=== PATIENT | female | born 1945 | race Caucasian/White ===

== ENCOUNTER 2016-10-31 08:59 | Inpatient (IN) | payer OTHER, MEDICARE ==
[2016-10-25 18:54] LABS: BILIRUBIN,URINE NEGATIVE (NEGATIVE); BLOOD, URINE NEGATIVE (NEGATIVE); CLARITY/URINE SL HAZY (CLEAR); COLOR,URINE YELLOW (YELLOW); GLUCOSE,URINE NEGATIVE (NEGATIVE); KETONES,URINE NEGATIVE (NEGATIVE); LEUKOCYTE ESTERASE ,URINE TRACE (NEGATIVE); NITRITE, URINE NEGATIVE (NEGATIVE); PH,URINE 5.5 (5.0-8.0); PROTEIN URINE NEGATIVE (NEGATIVE); UROBILINOGEN,URINE 0.2 (0.2-1.0)
[2016-10-25 18:56] LABS: BASOPHILS % (AUTO) 0.4 % (0.0-2.0); EOSINOPHILS # (AUTO) 0.1 K/uL (0.0-0.4); EOSINOPHILS % (AUTO) 1.1 % (0.0-4.0); HEMOGLOBIN 12.1 g/dL (12.0-16.0); LYMPHOCYTES # (AUTO) 2.7 K/uL (1.0-5.5); LYMPHOCYTES % (AUTO) 36.9 % (20.5-51.5); MEAN CORPUSCULAR HEMOGLOBIN 32 pg (27-31); MEAN CORPUSCULAR HGB CONC 34 % (32-36); MEAN CORPUSCULAR VOLUME 94 fL (79.0-98.0); MONOCYTES # (AUTO) 0.6 K/uL (0.0-1.0); MONOCYTES % (AUTO) 8.5 % (1.7-9.3); NEUTROPHILS % (AUTO) 53.1 % (40.0-70.0); PLATELET COUNT (AUTO) 203 K/uL (130-430); RED BLOOD CELL COUNT(AUTO) 3.83 MIL/uL (4.2-6.2); RED CELL DISTRIBUTION WIDTH 14.8 % (9.0-15.0); WHITE BLOOD COUNT (AUTO) 7.4 K/uL (4.8-10.8)
[2016-10-25 19:03] LABS: ANION GAP 8 (5-15); CALCIUM 9.8 mg/dL (8.4-11.0); CHLORIDE 106 mmol/L (98-107); CREATININE 1.11 mg/dL (0.55-1.30); GLUCOSE 92 mg/dL (70-99); POTASSIUM 4.6 mmol/L (3.5-5.1); SODIUM SERUM 141 mmol/L (136-145); UREA NITROGEN, BLOOD 36 mg/dL (8-21)
[2016-10-25 19:05] LABS: BACTERIA,URINE MODERATE /HPF (None Seen); RBC,URINE 0-3 /HPF (0-3)
[2016-10-25 19:06] LABS: MUCUS,URINE 2+ /LPF (None Seen)
[~2016-10-31] VITALS: Ht 167.6 cm; Wt 83.9 kg
[~2016-10-31 08:59] MED LIST: TRANEXAMIC ACID 1,000 MG/10 ML VIAL IV ONE
[2016-10-31] MEDS ORDERED: VANCOMYCIN HCL 1,000 MG in NS 250 ML IV ONE (09:30)
[2016-10-31] MEDS ORDERED: CEFAZOLIN SOD 2 GM in D5W 50 ML IV ONE (09:30)
[2016-10-31] MEDS ORDERED: MULT-1184 PO (09:47)
[2016-10-31] MEDS ORDERED: FISH1CAP16 PO (09:47)
[2016-10-31] MEDS ORDERED: LACT1CAP73 PO (09:47)
[2016-10-31] MEDS ORDERED: LOSA25TA3 PO (09:47)
[2016-10-31] MEDS ORDERED: METO25TA3 PO (09:47)
[2016-10-31] MEDS ORDERED: LEVO100T9 PO (09:47)
[2016-10-31] MEDS ORDERED: NEU300 PO (09:47)
[2016-10-31] MEDS ORDERED: PRAV20TA PO (09:47)
[2016-10-31] MEDS ORDERED: FERR140T PO (09:47)
[2016-10-31] MEDS ORDERED: SENN-104 PO (09:47)
[2016-10-31] MEDS ORDERED: CHOL100028 PO (09:47)
[2016-10-31] MEDS ORDERED: PYRI100T2 PO (09:47)
[2016-10-31] MEDS ORDERED: POLYMYXIN 500,000/BACIT.10,000 UNITS in NS IRR 1 L IR ONE ×2 (10:56→10:57)
[2016-10-31] MEDS ORDERED: LR 1,000 ML IV SCH (12:24)
[2016-10-31] MEDS ORDERED: DIPHENHYDRAMINE INJ 50 MG/ML VIAL IVP PRN (12:30)
[2016-10-31] MEDS ORDERED: ePHEDrine sulfate 50 MG/ML VIAL IVP PRN (12:30)
[2016-10-31] MEDS ORDERED: MEPERIDINE HCL/PF 25 MG/ML DISP.SYRIN IVP PRN (12:30)
[2016-10-31] MEDS ORDERED: ONDANSETRON HCL 4 MG/2 ML VIAL IVP PRN ×3 (12:30→14:30)
[2016-10-31] MEDS ORDERED: SEVOFLURANE 15 MIN GAS INH ONE (14:00)
[2016-10-31] MEDS ORDERED: CEFAZOLIN 2 GM IVPB PREMIX 50 ML IV ONE (14:00)
[2016-10-31] MEDS ORDERED: TRANEXAMIC ACID 1,000 MG/10 ML VIAL IV ONE (14:00)
[2016-10-31] MEDS ORDERED: fentaNYL CITRATE/PF 100 MCG/2 ML AMP ONE (14:00)
[2016-10-31] MEDS ORDERED: VANCOMYCIN HCL 1000 MG/VIAL IV ONE (14:00)
[2016-10-31] MEDS ORDERED: KETOROLAC TROMETHAMINE 30 MG VIAL ONE (14:00)
[2016-10-31] MEDS ORDERED: LR 1,000 ML IV.SOLN IV ONE (14:00)
[2016-10-31] MEDS ORDERED: PROPOFOL 200MG/ 20ML VIAL (DIPRIVAN) IV ONE (14:00)
[2016-10-31] MEDS ORDERED: MIDAZOLAM HCL 5 MG/5 ML VIAL ONE (14:00)
[2016-10-31] MEDS ORDERED: ROPIVACAINE 40 MG/20 ML AMP EP ONE (14:00)
[2016-10-31] MEDS ORDERED: NS 100 ML BAG IV ONE (14:00)
[2016-10-31] MEDS ORDERED: ROPIVACAINE 0.2% 100 ML ONE (14:25)
[2016-10-31] MEDS ORDERED: DIPHENHYDRAMINE HCL 25 MG CAPSULE PO PRN (14:30)
[2016-10-31] MEDS: MEPERIDINE HCL/PF 25 MG/ML DISP.SYRIN IVP PRN ×2 (15:05→15:25)
[2016-10-31] MEDS: ROPIVACAINE 0.2% 100 ML INJ SCH (15:05)
[2016-10-31] MEDS ORDERED: MEPERIDINE HCL/PF 25 MG/ML DISP.SYRIN ONE ×2 (15:09→15:29)
[2016-10-31] MEDS ORDERED: HYDROmorphone 1 MG INJ. 1 MG/ML AMPUL IVP PRN (15:45)
[2016-10-31] MEDS ORDERED: HYDROmorphone 1 MG INJ. 1 MG/ML AMPUL ONE (15:56)
[2016-10-31 16:00] VITALS: BP 138/72; PULSE 70; RESP 16; TEMP 97.6; O2SAT 98
--- NOTE | 2016-10-31 16:00 | NUR ---
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
--- NOTE | 2016-10-31 16:02 | NUR ---
NEUROVASCULAR CHECK PATIENT IS ABLE TO MOVE TOES BILATERALLY, SENSATION FELT ON BILATERAL LOWER EXTREMITIES, PEDAL PULSES PRESENT, CAPILLARY REFILL LESS THAN 3 SECONDS, PATIENT DENIES ANY NUMBNESS OR TINGLING AT THIS TIME.
[2016-10-31 16:34] VITALS: BP 145/76; PULSE 76; RESP 16; TEMP 98.6; O2SAT 100
[2016-10-31 17:20] VITALS: BP 148/83; PULSE 72
--- NOTE | 2016-10-31 17:23 | NUR ---
INCENTIVE SPIROMETER RESPIRATORY THERAPIST AT THE BEDSIDE, INSTRUCTING PATIENT ON USE OF INCENTIVE SPIROMETER AND HOW TO USE, HOW OFTEN, AND WHY, PATIENT IS ABLE TO GIVE RETURN DEMONSTRATION UP TO 1500ML.
[2016-10-31] MEDS ORDERED: TRANEXAMIC ACID 1,000 MG in NS 50 ML IV ONE (17:30)
[2016-10-31] MEDS: KETOROLAC TROMETHAMINE 15 MG VIAL IVP SCH ×2 (17:31→23:13)
--- NOTE | 2016-10-31 17:31 | NUR ---
RN ROUNDS PATIENT RESTING IN BED, STATES MILD PAIN AT THIS TIME, EDUCATED THE PATIENT ON MEDICATIONS AND POTENTIAL SIDE EFFECTS, PATIENT VERBALIZED UNDERSTANDING AT THIS TIME, IV SITE IS PATENT WITH NO SIGNS OF INFILTRATION AT THIS TIME, IV FLUIDS INFUSING WELL, NO OTHER NEEDS AT THIS TIME, BED IN LOWEST POSITION, THREE SIDE RAILS UP, BED ALARM ON, FALL AND ASPIRATION PRECAUTIONS IN PLACE, CALL LIGHT NEXT TO THE PATIENT'S HAND.
--- NOTE | 2016-10-31 18:24 | NUR ---
CLOSING NOTES PATIENT RESTING IN BED, AWAKE, EATING DINNER, ASPIRATION PRECAUTIONS IN PLACE, ALL NEEDS MET AT THIS TIME, PATIENT IS IN STABLE CONDITION, BED IN LOWEST POSITION, THREE SIDE RAILS UP, BED ALARM ON, FALL PRECAUTIONS IN PLACE, CALL LIGHT NEXT TO THE PATIENT'S HAND. Addendum: 10/31/16 at 1843 by Bandar Cohen RN WILL ENDORSE REPORT TO [facility] SHIFT NURSE.
[2016-10-31 20:00] VITALS: BP 133/79; PULSE 76; RESP 18; TEMP 97.1; O2SAT 99
--- NOTE | 2016-10-31 20:00 | NUR ---
Initial Notes Received patient laying in bed, alert, awake, oriented, but seems forgetful. Patient denies any acute distress or pain at this time. Vital signs stable. Breathing even and unlabored on 2L NC. Patient s/p right total knee arthroplasty. Right lower extremity wrapped with ora bandage, polar care cooling measures in use, knee fully extended with pillow under heel. Toes warm to touch, pulses and sensation present, cap refill normal. Hemovac to right knee, sanguinous drainage noted, compression maintained. Femoral block to right groin noted, patent/clean/dry, no s/s infection/infiltration noted. Compression devices to BLE. Hickey cath draining yellow urine to gravity. Educated patient on use of call light for assistance and fall precautions, patient verbalized understanding. Call light in hand, will continue to monitor for changes and safety.
[2016-10-31] MEDS: SENNOSIDES 8.6 MG TABLET PO SCH (21:15)
[2016-10-31] MEDS: D5/0.45 NS 1,000 ML IV SCH (21:16)
--- NOTE | 2016-10-31 21:23 | NUR ---
CONSULTATION PAGED REASON FOR CONSULTATION:MEDICAL MANAGEMENT WAS CONSULT CALLED?Y PERSON WHO WAS NOTIFIED:ARIANNA CONSULTING PHYSICIAN:MATHEUS LOWRY PAPER SAMPLE CLERK SPECIALTY:INTERNAL MEDICINE PAPER SAMPLE CLERK PHONE NUMBER:[phone]
--- NOTE | 2016-10-31 21:30 | NUR ---
[employer] Spoke with Dr. Elliott on phone, updated MD regarding patient's condition. Orders received for Dr. Ramírez for MD consult for medical management of patient. Spoke with and informed Dr. Ramírez of consult request.
--- NOTE | 2016-10-31 22:00 | NUR ---
Rounds Patient resting in bed, awake watching TV. Patient denies any acute distress or pain, states discomfort is still managed. Breathing even and unlabored. IV site patent/clean/dry. Hickey draining to gravity. Toes warm to touch, pulses and sensation present, cap refill normal. Call light in hand, Will continue to monitor.
[2016-11-01] VITALS (7 sets, daily range): BP systolic 100–135; BP diastolic 53–77; PULSE 69–89; RESP 16–20; TEMP 97.2–98; O2SAT 95–99
--- NOTE | 2016-11-01 | NUR ---
Rounds Patient resting in bed with eyes closed, easily aroused. Patient denies any acute distress or pain at this time. Breathing even and unlabored on 2L NC. IV site patent/clean/dry. Femoral block patent/clean/dry. Hickey draining to gravity. Hemovac compression maintained. Knees extended fully, pillow under right heel. Polar care in use. Dressing clean/dry/intact. Toes warm to touch, pulses and sensations present, cap refill normal. Patient's needs addressed. Call light in hand, will continue to monitor.
[2016-11-01] MEDS: ROPIVACAINE 0.2% 100 ML INJ SCH ×3 (01:29→20:54)
--- NOTE | 2016-11-01 02:00 | NUR ---
Rounds Patient resting in bed awake. Patient denies any acute distress or pain at this time. Breathing even and unlabored on 2L NC. IV site patent/clean/dry. Femoral block patent/clean/dry. Hickey draining to gravity. Hemovac compression maintained. Knees extended fully, pillow under right heel. Polar care in use. Dressing clean/dry/intact. Toes warm to touch, pulses and sensations present, cap refill normal. Education reinforced to patient regarding use of incentive spirometer with fuel technician and RT, approx 1200ml. Call light in hand, will continue to monitor.
--- NOTE | 2016-11-01 04:06 | NUR ---
Rounds Patient resting in bed with eyes closed, easily aroused. Patient denies any acute distress or pain at this time. Breathing even and unlabored on 2L NC. IV site patent/clean/dry. Femoral block patent/clean/dry. Hickey draining to gravity. Hemovac compression maintained. Knees extended fully, pillow under right heel. Polar care in use, ice replaced. Dressing clean/dry/intact. Toes warm to touch, pulses and sensations present, cap refill normal. Patient's needs addressed. Call light in hand, will continue to monitor.
[2016-11-01] MEDS: D5/0.45 NS 1,000 ML IV SCH ×3 (05:04→20:49)
[2016-11-01] MEDS: KETOROLAC TROMETHAMINE 15 MG VIAL IVP SCH (05:04)
--- NOTE | 2016-11-01 06:40 | NUR ---
Closing Notes Patient resting in bed, awake. Patient denies any acute distress or pain at this time. Breathing even and unlabored. IV site patent/clean/dry, no S/S infection/infiltration noted. Femoral block patent/clean/dry, no S/S infection/infiltration noted. Hickey draining to gravity. Right knee fully extended with pillow under heel per MD order. Polar care in use, tolerated well. Hemovac compression maintained, total shift output 180ml sanguinous drainage. Dressing clean/dry/intact. Toes warm to touch, pulses and sensations present, cap refill normal. Call light in hand, fall precautions in place. Will continue to monitor for changes and safety, and endorse all patient care/needs to oncoming nurse.
[2016-11-01 06:50] LABS: BASOPHILS % (AUTO) 0.2 % (0.0-2.0); EOSINOPHILS % (AUTO) 0.1 % (0.0-4.0); HEMATOCRIT 29.9 % (36-48); HEMOGLOBIN 10.1 g/dL (12.0-16.0); LYMPHOCYTES # (AUTO) 1.7 K/uL (1.0-5.5); LYMPHOCYTES % (AUTO) 16.5 % (20.5-51.5); MEAN CORPUSCULAR HEMOGLOBIN 32 pg (27-31); MEAN CORPUSCULAR HGB CONC 34 % (32-36); MEAN CORPUSCULAR VOLUME 94 fL (79.0-98.0); MONOCYTES # (AUTO) 0.8 K/uL (0.0-1.0); MONOCYTES % (AUTO) 7.9 % (1.7-9.3); NEUTROPHILS # (AUTO) 7.8 K/uL (1.8-7.7); NEUTROPHILS % (AUTO) 75.3 % (40.0-70.0); PLATELET COUNT (AUTO) 170 K/uL (130-430); RED BLOOD CELL COUNT(AUTO) 3.19 MIL/uL (4.2-6.2); RED CELL DISTRIBUTION WIDTH 14.6 % (9.0-15.0); WHITE BLOOD COUNT (AUTO) 10.3 K/uL (4.8-10.8)
[2016-11-01 07:01] LABS: ANION GAP 5 (5-15); CALCIUM 8.5 mg/dL (8.4-11.0); CHLORIDE 107 mmol/L (98-107); CREATININE 1.04 mg/dL (0.55-1.30); GLUCOSE 130 mg/dL (70-99); POTASSIUM 4.1 mmol/L (3.5-5.1); SODIUM SERUM 139 mmol/L (136-145); UREA NITROGEN, BLOOD 24 mg/dL (8-21)
[2016-11-01] MEDS ORDERED: LEVOTHYROXINE SODIUM 0.1 MG TABLET PO ONE (08:00)
--- NOTE | 2016-11-01 08:00 | NUR ---
INITIAL NOTES PT IN BED AWAKE, FORGETFUL. PAIN CONTROLLED AT THIS TIME. PT ON NAROPIN DRIP AT 8ML/HR. RT KNEE DRESSING IS DRY AND INTACT. POLAR CARE ON. HEMOVAC ON, EMPTY AT THIS TIME. BAUTISTA CATH DRAINING CLEAR YELLOW URINE. SAFETY PRECAUTION OBSERVED. CALL LIGHT IN REACH. ENC, TO CALL FOR HELP NEEDED. WILL MONITOR.
[2016-11-01] MEDS: CHOLECALCIFEROL (VITAMIN D3) 2,000 UNIT TABLET PO SCH (08:33)
[2016-11-01] MEDS: ASCORBIC ACID 500 MG TABLET PO SCH ×2 (08:33→20:49)
[2016-11-01] MEDS: GABAPENTIN 300 MG CAPSULE PO SCH ×2 (08:33→20:49)
[2016-11-01] MEDS: LOSARTAN POTASSIUM 25 MG TABLET PO SCH (09:00)
[2016-11-01] MEDS: METOPROLOL SUCCINATE 25 MG TAB.SR.24H (TOPROL XL) PO SCH (09:00)
[2016-11-01] MEDS: OMEGA3 PO SCH (09:00)
[2016-11-01] MEDS ORDERED: MULTIVITAMINS TAB 1 TABLET PO SCH (09:00)
[2016-11-01] MEDS ORDERED: PYRIDOXINE HCL 50 MG TABLET PO SCH (09:00)
[2016-11-01] MEDS ORDERED: LACTOBACILLUS RHAMNOSUS GG 1 CAP CAPSULE PO ONE (09:15)
[2016-11-01] MEDS ORDERED: MULTIVITS,CA,MINERALS/IRON/FA 1 TABLET PO ONE (09:15)
[2016-11-01] MEDS ORDERED: MULTIVITS,CA,MINERALS/IRON/FA 1 TABLET PO SCH (09:15)
--- NOTE | 2016-11-01 09:43 | NUR ---
Nutrition Update Jasbir Scale 16 noted. Pt admitted for unilateral primary osteoarthritis, R knee. Diet: regular BMI: 29.9 kg/m2 RD to follow per nutrition care standards.
--- NOTE | 2016-11-01 10:10 | NUR ---
IV WAS PULLED OUT. WILL START A NEW ONE AFTER WORKING WITH THERAPY.
--- NOTE | 2016-11-01 10:13 | NUR ---
THERAPY WORKING WITH PHYSICAL THERAPY AT THIS TIME.
[2016-11-01] MEDS: RIVAROXABAN 10 MG TABLET PO SCH (11:17)
[2016-11-01] MEDS: SIMVASTATIN 10 MG TABLET PO SCH (11:17)
--- NOTE | 2016-11-01 12:00 | NUR ---
ROUNDS BACK TO BED, EATING LUNCH. PAIN CONTROLLED. ENC. TO CALL IF SHE NEEDS PAIN MEDICATIONS. PT VERBALIZE UNDERSTANDING.
--- NOTE | 2016-11-01 12:54 | NUR ---
DISCHARGE PLANNING DC planning to SNF. NITHYA Little met with patient. Faxed SNF referral to [facility] [phone]. will follow up. Estimated DC date 11/03. Addendum: 11/01/16 at 1451 by Tierra Bowser DP Spoke with Massiel in admitting at [facility] patient accepted and bed assignment will be given upon discharge order. Massiel requested return call back with following MD. NITHYA made aware.
--- NOTE | 2016-11-01 14:00 | NUR ---
IV IV WAS STARTED BY THE RESOURCE NURSE. IVF CONTINUED AT THIS TIME.
--- NOTE | 2016-11-01 14:39 | NUR ---
PHYSICAL THERAPY CO-SIGN The Physical Therapy Progress Notes documented by Fur Machine Operator have been reviewed. I CONCUR W/CLIENT SUPPORT ANALYST NOTE; CONT PER TX PLAN Reviewed/Co-Signed by: Dian Rivera PT Documentation Done by: JAYJAY SILVER CLIENT SUPPORT ANALYST Addendum: 11/01/16 at 1440 by Dian Rivera PT Amended: Links added.
--- NOTE | 2016-11-01 16:00 | NUR ---
NOTES IN BED, FAMILY AT BEDSIDE. PAIN CONTROLLED. PT STATED THAT SHE ONLY HAVE PAIN WHEN SHE MOVE. NO ACUTE DISTRESS NOTED.
--- NOTE | 2016-11-01 16:10 | NUR ---
JOHN SOUZA CHANGED WITH OTHER RNDEVIN.
--- NOTE | 2016-11-01 16:30 | NUR ---
BEDSIDE COMMODE PT WANTS TO HAVE BOWEL MOVEMENT,ASSISTED TO BEDSIDE COMMODE. NO BOWEL MOVEMENT. ONLY GAS AT THIS TIME.
--- NOTE | 2016-11-01 18:36 | NUR ---
NOTES IN BED, AWAKE. FAMILY AT BEDSIDE. PAIN CONTROLLED. ENC. PT TO CALL IF SHE NEEDS SOMETHING FOR PAIN. PT VERBALIZE UNDERSTANDING. PT FEELS SHE IS CONSTIPATED. PRUNE JUICE PROVIDED REQUESTED. ABLE TO MOVE TOES. NO DISTRESS NOTED.ALL NEEDS MEET. WILL ENDORSE
--- NOTE | 2016-11-01 19:42 | NUR ---
OPENING NOTE Pt. and bedside report received from day shift nurse. Pt. is AAO, resting quietly in bed with no s/s of acute distress. Plan of care discussed; pt. verbalized understanding. Educated pt. on safety and how to use call light for assistance. Bed alarm turned on. Call light placed to right hand.IV site to left hand 22g is dry intact and infusing IV fluids as ordered. Pt. denies any pain or discomfort at this time. Suction maintained to wound vac. Dressing to right lower extremity is dry and intact; neuro checks done, pt. able to wiggle all toes. Naropin infusing at 8mls/hour as ordered for pain management. Trapeze and polar care present. Will continue to monitor.
[2016-11-01] MEDS: SENNOSIDES 8.6 MG TABLET PO SCH (20:49)
--- NOTE | 2016-11-01 22:18 | NUR ---
DUE MEDS/IV FLUIDS/HEMOVAC Late entry due to pt. care. Due meds administered as ordered; pt. tolerated well, educated pt. regarding medication and s/e. Pt. verbalized understanding. IV fluid bags changed and infusing as ordered. 50mls of red drainage emptied from Hemovac; maintaining suction. Educated pt. to use call light for any needs. Pt. denies any pain or discomfort at this time. Safety measures in place. Bed alarm on. Will continue to monitor.
[2016-11-01] MEDS: OXYCODONE/ACETAMINOPHEN 5-325 TABLET PO PRN (23:58)
[2016-11-02] VITALS (7 sets, daily range): BP systolic 112–131; BP diastolic 57–72; PULSE 71–87; RESP 16–20; TEMP 98.1–99.8; O2SAT 96–98
--- NOTE | 2016-11-02 00:24 | NUR ---
PULSE OX/PAIN/PT. UPSET Late entry due to pt. care. Pt. c/o pain to right knee "02/16" because she states she was "exercising her feet." Pt. medicated with Percocet PO as ordered PRN for moderate pain. Educated pt. regarding medication and s/e. Pt. verbalized understanding. Pulse ox was changed due to pt. c/o of it "always coming off." VSS. NATUROPATHIC DOCTOR at bedside fixing polar care. Pt. was upset regarding her blanket not being put back on but I reminded her I asked her when I fixed her pillow underneath her ankle and she stated she was "warm." I addressed her concerns and apologized for her feelings. Pt. verbalized understanding and requested for light to be turned off. She also c/o being bothered often and I reassured her hourly rounds were done for her safety. Also reminded pt. to use incentive spirometer; pt. able to inspire up to 1500 at this time. I educated pt. regarding pain management and to call for any needs. Pt. verbalized understanding. Call light placed to right hand. Bed alarm on. Will continue to monitor.
--- NOTE | 2016-11-02 00:48 | NUR ---
ROUNDS Pt. is resting quietly in bed with no s/s of acute distress. Pt. states pain medication was effective and she is "okay right now" and states her pain level is "0/10." Safety measures in place. Bed alarm on. Encouraged pt. to use call light for any needs. Will continue to monitor.
[2016-11-02] MEDS: D5/0.45 NS 1,000 ML IV SCH ×2 (01:46→14:25)
[2016-11-02] MEDS: ROPIVACAINE 0.2% 100 ML INJ SCH ×2 (01:46→17:48)
--- NOTE | 2016-11-02 02:13 | NUR ---
NAROPIN/IV FLUIDS Late entry due to pt. care. IV fluids rate changed from 125mls/hour to TKO due to pt. tolerating diet. Naropin/femoral block bag was changed and infusing as ordered at 8mls/hour. Pt. denies any pain or discomfort at this time. Safety measures in place. Encouraged pt. to use call light for any needs. Will continue to monitor. Addendum: 11/02/16 at 0217 by Radha Cheng RN NAROPIN/IV FLUIDS Late entry due to pt. care. IV fluids rate changed from 125mls/hour to TKO due to pt. tolerating diet. Naropin/femoral block bag was changed and infusing as ordered at 8mls/hour; witnessed with BHAVYA Gonzales. Pt. denies any pain or discomfort at this time. Safety measures in place. Encouraged pt. to use call light for any needs. Will continue to monitor.
--- NOTE | 2016-11-02 04:17 | NUR ---
ROUNDS Pt. resting quietly in bed, easily arousable. Requested washcloths and basin of water so she can "freshen up." RATE ENGINEER at bedside offered but pt. stated she wants to do it herself. Emptied 20mls of red drainage from hemovac; continuing to maintain its suction. Neuro checks done. Fixed pillow to right heel to maintain knee extension; pt. tolerated well. Pt. denies any pain or discomfort at this time and states that the Percocet medication administered earlier "helped alot." Safety measures in place. Bed alarm on. Encouraged pt. to continue using incentive spirometer for deep breathing exercises; pt. able to return demonstration and inspire up to 1500 at this time. Call light on lap. Encouraged pt. to use call light for any needs. Pt. verbalized understanding. Will continue to monitor.
--- NOTE | 2016-11-02 04:26 | NUR ---
OXYGEN/NASAL CANNULA Pt.'s oxygen saturation on room air is 96%; nasal cannula removed and educated pt. she is tolerating room air and to use call light when she experiences any SOB or difficulty breathing. Pt. states oxygen via NC was initially placed because she was having shallow breathing yesterday. Will continue to monitor.
[2016-11-02] MEDS: LEVOTHYROXINE SODIUM 0.1 MG TABLET PO SCH (05:57)
[2016-11-02] MEDS: OXYCODONE/ACETAMINOPHEN 5-325 TABLET PO PRN ×2 (05:58→14:52)
--- NOTE | 2016-11-02 06:26 | NUR ---
PAIN/DUE MEDS/BAUTISTA CATHETER REMOVED/HEMOVAC Pt. states pain to right knee is "5/10"; medicated with Percocet PO as ordered PRN for moderate pain. Due meds administered as ordered. Educated pt. regarding administered medications and their s/e. Also mentioned pain medication increases her risk for falls. Pt. verbalized understanding and is able to teach back. Bautista catheter removed; 200 mls of yellow urine emptied; educated pt. regarding need to void within 6 hours of removal. Pt. verbalized understanding and stated she will "use the bedside toilet." Repositioned pt. with pillows as support. Maintained pillow under bilateral heels to allow extension of knee. Emptied 30 mls of red drainage from hemovac; continued to maintain its suction. Safety measures in place. Pt. denies any needs at this time. Bed alarm on. Encouraged pt. to use call light for any needs. Will continue to monitor.
[2016-11-02 06:27] LABS: ANION GAP 4 (5-15); CALCIUM 8.2 mg/dL (8.4-11.0); CHLORIDE 108 mmol/L (98-107); CREATININE 0.93 mg/dL (0.55-1.30); GLUCOSE 111 mg/dL (70-99); POTASSIUM 4.1 mmol/L (3.5-5.1); SODIUM SERUM 141 mmol/L (136-145); UREA NITROGEN, BLOOD 19 mg/dL (8-21)
[2016-11-02 06:45] LABS: BASOPHILS % (AUTO) 0.3 % (0.0-2.0); EOSINOPHILS % (AUTO) 0.4 % (0.0-4.0); HEMATOCRIT 28.2 % (36-48); HEMOGLOBIN 9.4 g/dL (12.0-16.0); LYMPHOCYTES # (AUTO) 1.7 K/uL (1.0-5.5); LYMPHOCYTES % (AUTO) 21.5 % (20.5-51.5); MEAN CORPUSCULAR HEMOGLOBIN 31 pg (27-31); MEAN CORPUSCULAR HGB CONC 33 % (32-36); MEAN CORPUSCULAR VOLUME 94 fL (79.0-98.0); MONOCYTES # (AUTO) 0.9 K/uL (0.0-1.0); MONOCYTES % (AUTO) 11.2 % (1.7-9.3); NEUTROPHILS # (AUTO) 5.3 K/uL (1.8-7.7); NEUTROPHILS % (AUTO) 66.6 % (40.0-70.0); PLATELET COUNT (AUTO) 140 K/uL (130-430); RED BLOOD CELL COUNT(AUTO) 3.01 MIL/uL (4.2-6.2); RED CELL DISTRIBUTION WIDTH 14.9 % (9.0-15.0); WHITE BLOOD COUNT (AUTO) 7.9 K/uL (4.8-10.8)
--- NOTE | 2016-11-02 06:48 | NUR ---
REQUESTED HER CHAPSTICK Pt. requested her chapstick. Pt. denies any other needs at this time. Safety measures in place. Encouraged pt. to use call light for any needs. Call light to right hand. Will continue to monitor.
--- NOTE | 2016-11-02 08:35 | NUR ---
OPENING NOTE RECEIVED REPORT FROM NIGHT NURSE, PATIENT IS RESTING IN BED COMFORTABLY WITH SOME COMPLAINTS OF PAIN BUT KNOWS MEDICATION IS NOT DUE YET. PATIENT IS ALERT AND ORIENTED AND ABLE TO COMMUNICATE NEEDS TO STAFF. PATIENT IS AMBULATORY WITH ASSISTANCE AND PT. BSC IS WITHIN REACH AND BED IS IN LOWEST POSITION WITH CALL LIGHT NEAR. WILL CONTINUE TO MONITOR.
[2016-11-02] MEDS: METOPROLOL SUCCINATE 25 MG TAB.SR.24H (TOPROL XL) PO SCH (09:00)
[2016-11-02] MEDS ORDERED: PYRIDOXINE HCL 50 MG TABLET PO SCH (09:14)
[2016-11-02] MEDS: SIMVASTATIN 10 MG TABLET PO SCH (09:20)
[2016-11-02] MEDS: GABAPENTIN 300 MG CAPSULE PO SCH ×2 (09:20→20:47)
[2016-11-02] MEDS: LACTOBACILLUS RHAMNOSUS GG 1 CAP CAPSULE PO SCH (09:20)
[2016-11-02] MEDS: ASCORBIC ACID 500 MG TABLET PO SCH ×2 (09:20→20:46)
[2016-11-02] MEDS: MULTIVITS,CA,MINERALS/IRON/FA 1 TABLET PO SCH (09:20)
[2016-11-02] MEDS: LOSARTAN POTASSIUM 25 MG TABLET PO SCH (09:20)
[2016-11-02] MEDS: RIVAROXABAN 10 MG TABLET PO SCH (09:21)
[2016-11-02] MEDS: CHOLECALCIFEROL (VITAMIN D3) 2,000 UNIT TABLET PO SCH (09:21)
[2016-11-02] MEDS ORDERED: PYRIDOXINE HCL 50 MG TABLET PO ONE (09:30)
--- NOTE | 2016-11-02 10:25 | NUR ---
DRESSING CHANGE DR SHERWOOD WAS HERE TO CHANGED THE DRESSING ON THE RIGHT KNEE WITH NO COMPLICATIONS, NO NOTED PAIN AT THIS TIME. DR HOSKINS WAS HERE AND THE PATIENT SHOULD BE GOING TO [place] TOMORROW. THE FEMORAL BLOCK SHOULD BE REMOVED THIS AFTERNOON BY THE DOCTOR. CALL LIGHT IS WITHIN REACH AND BED IS IN LOWEST POSITION. WILL CONTINUE TO MONITOR.
--- NOTE | 2016-11-02 12:37 | NUR ---
NOTE PATIENT WORKED WITH PT AND IS SITTING IN THE CHAIR WITH NO COMPLAINTS OF PAIN, NO NOTED DISTRESS, DISCOMFORT OR SOB. CALL LIGHT IS WITHIN REACH AND WILL CONTINUE TO MONITOR.
--- NOTE | 2016-11-02 14:30 | NUR ---
NOTE PATIENT IS RESTING IN BED COMFORTABLY WITH NO COMPLAINTS OF PAIN, NO NOTED DISTRESS, DISCOMFORT OR SOB. BED IS IN LOWEST POSITION AND CALL LIGHT IS WITHIN REACH. WILL CONTINUE TO MONITOR.
--- NOTE | 2016-11-02 14:50 | NUR ---
DISCHARGE PLANNING spoke with Massiel in admitting at [facility] patient assigned to room 116A RN to report [phone]. Massiel requested for RN to give ETA when report is given. Placed transportation packet in nurses station. Pending discharge order. Addendum: 11/02/16 at 1612 by Tierra Bowser DP Met with patient at bedside regarding discharge planning. Patient agreeable with plan to discharge to [facility] and did not have any further questions at this time.
--- NOTE | 2016-11-02 15:15 | NUR ---
PHYSICAL THERAPY CO-SIGN The Physical Therapy Progress Notes documented by Inventory Administrator have been reviewed. Reviewed/Co-Signed by: Manisha Clark, PT Documentation Done by: Diogenes Sanchez PTA I concur with the AM and PM documentation of this CLINICAL ADMISSIONS MANAGER. Plan: continue PT as per plan of care. Addendum: 11/02/16 at 1521 by Manisha Clark PT Amended: Links added.
--- NOTE | 2016-11-02 16:25 | NUR ---
NOTE I GAVE REPORT TO GUANAKO AND EXPLAINED TO THE PATIENT THAT I WILL BE LEAVING FOR THE DAY. NO COMPLAINTS OF PAIN AT THIS TIME. BED IS IN LOWEST POSITION AND WILL CONTINUE TO MONITOR.
--- NOTE | 2016-11-02 16:30 | NUR ---
ASSUMPTION OF CARE RECEIVED PATIENT AAOX3. NO COMPLAINTS OF POST SURGICAL KNEE PAIN. NO DISTRESS NOTED. PT HAS A FEMORAL BLOCK THAT WILL BE REMOVED BY ANESTHESIOLOGIST. DRESSING TO RIGHT KNEE APPEARS DRY, CLEAN AND INTACT. POLAR CARE IN PLACE. ENCOURAGED TO CALL FOR ASSISTANCE. CALL LIGHT WITHIN REACH. FALL AND SAFETY PRECAUTIONS ENFORCED. WILL MONITOR.
--- NOTE | 2016-11-02 18:30 | NUR ---
CLOSING NOTES PT AWAKE RESTING IN BED WITH DAUGHTER AT BEDSIDE. NO COMPLAINTS OF PAIN AT THIS TIME. NO DISTRESS NOTED. WILL ENDORSE CARE TO INCOMING NURSE.
--- NOTE | 2016-11-02 19:35 | NUR ---
Initial note Pt. received aaox4, no s/s of sob or distress noted at this time. VSS. pt. is sinus rhythm on the monitor. IV access noted to left hand, no redness or swelling noted to the site, IV fluids are infusing as ordered. right knee is covered with dry and intact dressing over incision site, no active bleeding noted. polar care in place to right knee. Plexi pulses to both feet. Femoral block is in place. pt. is able to wiggle toes, feel sensation and pulses are present bilaterally. plan of care discusses with the patient, verbalizes understanding. Family is at the bedside. will continue to monitor for any changes. safety and fall precautions in place. call light in reach, bed alarm on.
[2016-11-02] MEDS: SENNOSIDES 8.6 MG TABLET PO SCH (20:46)
--- NOTE | 2016-11-02 22:04 | NUR ---
rounds pt. resting in bed. no s/s of sob or distress noted. pt. instructed to use the incentive spirometer hourly, returns demonstration of 1500 ml. IV fluids infusing as ordered. polar care is in place to right knee. no active bleeding noted to right knee, dressing is dry and intact. pt. able to wiggle toes, feel sensation, and pulses are present bilaterally. will continue to monitor for any changes. safety and fall precautions in place. call light in reach, bed alarm on.
--- NOTE | 2016-11-03 00:03 | NUR ---
rounds pt. resting in bed with eyes closed. chest rise and fall noted. no s/s of acute distress or pain at this time. IV fluids infusing well as ordered. no active bleeding noted to incision site on right knee, dressing remains dry and intact. polar care to right knee, plexi pulses bilaterally. will continue to monitor for any changes. safety and fall precautions in place, call light in reach, bed alarm on.
--- NOTE | 2016-11-03 04:06 | NUR ---
rounds pt. resting in bed. no s/s of distress noted at this time. pt. repositioned for comfort and supported well with pillows. IV fluids infusing well as ordered. no active bleeding noted to right knee, dressing is dry and intact with polar care in place. Plexi pulses in place. pt. able to move toes, feel sensation, and pulses are present bilaterally. will continue to monitor. safety and fall precautions in place. call light in reach, bed alarm on.
[2016-11-03 04:08] VITALS: BP 116/65; PULSE 80; RESP 16; TEMP 97.6; O2SAT 97
[2016-11-03] MEDS: LEVOTHYROXINE SODIUM 0.1 MG TABLET PO SCH (06:02)
[2016-11-03] MEDS: OXYCODONE/ACETAMINOPHEN 5-325 TABLET PO PRN (06:02)
[2016-11-03] MEDS: ROPIVACAINE 0.2% 100 ML INJ SCH (06:13)
--- NOTE | 2016-11-03 06:52 | NUR ---
closing note pt. resting in bed. no s/s of sob or distress noted. pt. was given pain medication, will reassess. IV fluids infusing well as ordered. no active bleeding noted to right knee incision site. dressing is dry and intact. pexi pulses to both feet. all necessary needs were met throughout the shift. safety and fall precautions were maintained. will endorse care to AM nurse. call light in reach, bed in lowest position.
[2016-11-03 07:10] LABS: BASOPHILS % (AUTO) 0.3 % (0.0-2.0); EOSINOPHILS # (AUTO) 0.1 K/uL (0.0-0.4); EOSINOPHILS % (AUTO) 1.1 % (0.0-4.0); HEMATOCRIT 28.2 % (36-48); HEMOGLOBIN 9.4 g/dL (12.0-16.0); LYMPHOCYTES # (AUTO) 1.7 K/uL (1.0-5.5); LYMPHOCYTES % (AUTO) 22.4 % (20.5-51.5); MEAN CORPUSCULAR HEMOGLOBIN 31 pg (27-31); MEAN CORPUSCULAR HGB CONC 33 % (32-36); MEAN CORPUSCULAR VOLUME 94 fL (79.0-98.0); MONOCYTES # (AUTO) 0.8 K/uL (0.0-1.0); MONOCYTES % (AUTO) 10.7 % (1.7-9.3); NEUTROPHILS # (AUTO) 4.9 K/uL (1.8-7.7); NEUTROPHILS % (AUTO) 65.5 % (40.0-70.0); PLATELET COUNT (AUTO) 145 K/uL (130-430); RED BLOOD CELL COUNT(AUTO) 3.01 MIL/uL (4.2-6.2); RED CELL DISTRIBUTION WIDTH 14.9 % (9.0-15.0); WHITE BLOOD COUNT (AUTO) 7.5 K/uL (4.8-10.8)
[2016-11-03 07:14] LABS: ANION GAP 4 (5-15); CALCIUM 8.5 mg/dL (8.4-11.0); CHLORIDE 107 mmol/L (98-107); CREATININE 0.93 mg/dL (0.55-1.30); GLUCOSE 120 mg/dL (70-99); SODIUM SERUM 139 mmol/L (136-145); UREA NITROGEN, BLOOD 17 mg/dL (8-21)
[2016-11-03 08:00] VITALS: BP 100/42; PULSE 84; RESP 16; TEMP 97; O2SAT 98
--- NOTE | 2016-11-03 08:00 | NUR ---
PATIENT A/OX4, IS RESTING IN BED COMFORTABLY WITH SOME COMPLAINTS OF PAIN, BUT STATES THE PAIN IS MANAGEMENT. AND ABLE TO COMMUNICATE NEEDS TO STAFF. PATIENT IS AMBULATORY WITH ASSISTANCE AND PT. IV ON RIGHT HAND, #22, SL, WITH ROPAVACINE INFUSING AT 8ML/HR, INTACT AND PATENT. BSC IS WITHIN REACH AND BED IS IN LOWEST POSITION WITH CALL LIGHT NEAR. WILL CONTINUE TO MONITOR.
[2016-11-03] MEDS: METOPROLOL SUCCINATE 25 MG TAB.SR.24H (TOPROL XL) PO SCH (08:20)
[2016-11-03] MEDS: LOSARTAN POTASSIUM 25 MG TABLET PO SCH (08:20)
[2016-11-03] MEDS ORDERED: PYRIDOXINE HCL 50 MG TABLET PO SCH (09:00)
[2016-11-03] MEDS: OMEGA3 PO SCH (09:00)
[2016-11-03] MEDS: CHOLECALCIFEROL (VITAMIN D3) 2,000 UNIT TABLET PO SCH (09:45)
[2016-11-03] MEDS: LACTOBACILLUS RHAMNOSUS GG 1 CAP CAPSULE PO SCH (09:45)
[2016-11-03] MEDS: ASCORBIC ACID 500 MG TABLET PO SCH (09:46)
[2016-11-03] MEDS: MULTIVITS,CA,MINERALS/IRON/FA 1 TABLET PO SCH (09:46)
[2016-11-03] MEDS: GABAPENTIN 300 MG CAPSULE PO SCH (09:46)
[2016-11-03] MEDS: RIVAROXABAN 10 MG TABLET PO SCH (09:46)
[2016-11-03] MEDS: SIMVASTATIN 10 MG TABLET PO SCH (09:47)
--- NOTE | 2016-11-03 10:28 | NUR ---
PATIENT IS SITTING IN A CHAIR WITH ASSISTANCE OF PT. NO SIGNS OF DISTRESS NOTED.
[2016-11-03 11:45] VITALS: BP 95/60; PULSE 69; RESP 19; TEMP 98.1; O2SAT 97
[2016-11-03 12:21] VITALS: Ht 167.6 cm; Wt 83.9 kg
--- NOTE | 2016-11-03 12:55 | NUR ---
DC PLANNING: RECEIVED A DC ORDER FROM SURGEON. ARRANGED TRANSPORTATION FOR 1500. TO GIVE REPORT TEL# [phone]- [facility] ROOM 116 A. INFORMED THE PATIENT ABOUT HER DC PLAN, SHE IS AGREEABLE. NOTIFIED RYAN LATIF AND [employer] MOBILE SALES CONSULTANT. PACKET AT THE STATION W/ WRITTEN ORDER FROM DR. NEVES INSIDE.
[2016-11-03 13:25] VITALS: BP 95/60; PULSE 85; RESP 16; TEMP 98.4; O2SAT 97
--- NOTE | 2016-11-03 14:30 | NUR ---
PATIENT'S DRESSING IS CHANGED; WOUND CLEAN DRY AND INTACT, AND IS COVERED WITH DRY GAUZE, WRAPPED WITH KALI-WRAP.
--- NOTE | 2016-11-03 15:34 | NUR ---
D/C Patient Patient given medication reconciliation form and D/C instructions. Exit Care provided. Patient verbalized understanding. MD discussed with patient the results and treatment provided. Patient in stable condition, ID band removed. IV catheter removed, intact and dressing applied, no active bleeding. Patient educated on pain management. All belongings sent with patient.
== END 2016-11-03 15:30 | DRG 470 ==
LOC: SMU 08:59 → STU 16:19
PROVIDERS: ADMIT Orthopaedic Surgery; ATTEND Orthopaedic Surgery
PROC: 3E0T3CZ (ICD-10-PCS; 2016-10-31)
PROC: 0SRC0J9 Replacement of Right Knee Joint with Synthetic Substitute, Cemented, Open Approach (ICD-10-PCS; principal; 2016-10-31 12:00)
DX: M17.11 Unilateral primary osteoarthritis, right knee (principal); E03.9 Hypothyroidism, unspecified; E78.5 Hyperlipidemia, unspecified; I10 Essential (primary) hypertension; G89.29 Other chronic pain; M54.5 Low back pain; Z96.652 Presence of left artificial knee joint; R29.6 Repeated falls; Z85.42 Personal history of malignant neoplasm of other parts of uterus; Z87.891 Personal history of nicotine dependence; Z90.710 Acquired absence of both cervix and uterus
CPT/HCPCS: 36415; 71020-TC; 73560-TC; 80048; 81000-TC; 85025; 86886; 86900; 86901; 86920; 87081; 87086; 88305; 88311; 93005; 94010; 94760; 97110-GP; 97116-GP; 97530-GP; C1713; C1776; J0690; J1170; J1885; J2175; J2250; J2704; J2795; J3010; J3370; J3490; J7050; J7060; J7120

== ENCOUNTER 2017-07-06 17:20 | Inpatient (IN) | payer OTHER, MEDICARE ==
[~2017-07-06] VITALS: Ht 170.2 cm; Wt 80.3 kg
[2017-07-06 17:20] VITALS: BP_SYST 107
[~2017-07-06 17:20] MED LIST changes: +CHOL100028 PO; +FERR140T PO; +FISH1CAP16 PO; +LACT1CAP73 PO; +LEVO100T9 PO; +LOSA25TA3 PO; +METO25TA3 PO; +MULT-1184 PO; +NEU300 PO; +PRAV20TA PO; +PYRI100T2 PO; +SENN-104 PO; -TRANEXAMIC ACID 1,000 MG/10 ML VIAL IV ONE
[2017-07-06 17:50] LABS: EOSINOPHILS % (AUTO) 0.4 % (0.0-4.0); NEUTROPHILS # (AUTO) 7.8 K/uL (1.8-7.7); WHITE BLOOD COUNT (AUTO) 9.6 K/uL (4.8-10.8)
[2017-07-06 17:56] LABS: BASOPHILS % (AUTO) 0.3 % (0.0-2.0); HEMATOCRIT 41.3 % (36-48); HEMOGLOBIN 13.6 g/dL (12.0-16.0); LYMPHOCYTES % (AUTO) 10.7 % (20.5-51.5); MEAN CORPUSCULAR HEMOGLOBIN 31 pg (27-31); MEAN CORPUSCULAR HGB CONC 33 % (32-36); MEAN CORPUSCULAR VOLUME 94 fL (79.0-98.0); MONOCYTES # (AUTO) 0.8 K/uL (0.0-1.0); NEUTROPHILS % (AUTO) 80.6 % (40.0-70.0); PLATELET COUNT (AUTO) 244 K/uL (130-430); RED BLOOD CELL COUNT(AUTO) 4.41 MIL/uL (4.2-6.2); RED CELL DISTRIBUTION WIDTH 12.9 % (9.0-15.0)
[2017-07-06 18:01] LABS: ANION GAP 13 (5-15); CALCIUM 9.9 mg/dL (8.4-11.0); CHLORIDE 107 mmol/L (98-107); CREATININE 1.49 mg/dL (0.55-1.30); GLUCOSE 104 mg/dL (70-99); POTASSIUM 3.7 mmol/L (3.5-5.1); SODIUM SERUM 144 mmol/L (136-145); UREA NITROGEN, BLOOD 32 mg/dL (8-21)
[2017-07-06 18:22] LABS: ALANINE AMINOTRANSFERASE 60 U/L (12-78); ALBUMIN 3.6 g/dL (3.4-4.8); ASPARTATE AMINOTRANSFERASE 82 U/L (10-37); TOTAL BILIRUBIN 0.9 mg/dL (0.0-1.0)
[2017-07-06] MEDS ORDERED: HEPARIN 25,000 UNITS/D5W 250ML 250 ML IV ONE ×2 (19:15→20:15)
[2017-07-06 19:39] LABS: PROTHROMBIN TIME 10.5 SECS (9.5-12.5)
[2017-07-06] MEDS ORDERED: LEVE500T13 PO (19:56)
[2017-07-06] MEDS ORDERED: TROS20TA2 PO (19:56)
[2017-07-06] MEDS ORDERED: HEPARIN SODIUM,PORCINE 5000 UNITS/ML VIAL ONE (20:00)
[2017-07-06] MEDS ORDERED: HEPARIN SODIUM,PORCINE 5000 UNITS/ML VIAL IVP ONE (20:15)
[2017-07-06 20:59] VITALS: BP_SYST 114
[2017-07-06] MEDS ORDERED: HEPARIN SODIUM,PORCINE 3000 UNITS/0.6 ML BOLUS IVP PRN (22:30)
[2017-07-06] MEDS ORDERED: HEPARIN 25,000 UNITS in 250 ML PREMIX IV PRN (22:30)
[2017-07-06] MEDS ORDERED: *HEPARIN PER PHARMACY XX ONE (22:30)
[2017-07-06] MEDS ORDERED: HEPARIN SODIUM,PORCINE 2000 UNITS/0.4 ML BOLUS IVP PRN (22:30)
[2017-07-06] MEDS ORDERED: ASPIRIN 81 MG TABLET(ECOTRIN) PO ONE (23:15)
[2017-07-06] MEDS ORDERED: MORPHINE 2 MG/ML INJ. SYRINGE IVP PRN (23:15)
[2017-07-07 00:13] VITALS: BP_SYST 118
[2017-07-07 01:50] LABS: BILIRUBIN,URINE NEGATIVE (NEGATIVE); BLOOD, URINE 1+ (NEGATIVE); CLARITY/URINE CLEAR (CLEAR); COLOR,URINE YELLOW (YELLOW); GLUCOSE,URINE NEGATIVE (NEGATIVE); KETONES,URINE NEGATIVE (NEGATIVE); LEUKOCYTE ESTERASE ,URINE NEGATIVE (NEGATIVE); NITRITE, URINE POSITIVE (NEGATIVE); PH,URINE 5.5 (5.0-8.0); PROTEIN URINE TRACE (NEGATIVE); UROBILINOGEN,URINE 0.2 (0.2-1.0)
[2017-07-07 01:55] LABS: BACTERIA,URINE MANY /HPF (None Seen); RBC,URINE 0-3 /HPF (0-3)
[2017-07-07] MEDS: MULTIVITS,CA,MINERALS/IRON/FA 1 TABLET PO SCH ×4 (02:30→08:21)
[2017-07-07] MEDS ORDERED: levETIRAcetam 500 MG TABLET PO ONE (02:30)
[2017-07-07] MEDS ORDERED: PANTOPRAZOLE SODIUM 40 MG TAB PO ONE (02:30)
[2017-07-07] MEDS: PANTOPRAZOLE SODIUM 40 MG TAB PO SCH ×2 (02:44→08:19)
[2017-07-07] MEDS: levETIRAcetam 500 MG TABLET PO SCH ×3 (02:44→21:44)
[2017-07-07 04:19] VITALS: BP_SYST 93
[2017-07-07 06:47] LABS: BASOPHILS % (AUTO) 0.5 % (0.0-2.0); EOSINOPHILS # (AUTO) 0.1 K/uL (0.0-0.4); EOSINOPHILS % (AUTO) 1.4 % (0.0-4.0); HEMOGLOBIN 11.6 g/dL (12.0-16.0); LYMPHOCYTES % (AUTO) 27.8 % (20.5-51.5); MEAN CORPUSCULAR HEMOGLOBIN 32 pg (27-31); MEAN CORPUSCULAR HGB CONC 33 % (32-36); MEAN CORPUSCULAR VOLUME 95 fL (79.0-98.0); MONOCYTES # (AUTO) 0.6 K/uL (0.0-1.0); NEUTROPHILS # (AUTO) 4.6 K/uL (1.8-7.7); NEUTROPHILS % (AUTO) 62.3 % (40.0-70.0); PLATELET COUNT (AUTO) 204 K/uL (130-430); RED BLOOD CELL COUNT(AUTO) 3.66 MIL/uL (4.2-6.2); RED CELL DISTRIBUTION WIDTH 12.7 % (9.0-15.0); WHITE BLOOD COUNT (AUTO) 7.3 K/uL (4.8-10.8)
[2017-07-07 06:58] LABS: ALANINE AMINOTRANSFERASE 39 U/L (12-78); ALBUMIN 2.9 g/dL (3.4-4.8); ANION GAP 8 (5-15); ASPARTATE AMINOTRANSFERASE 58 U/L (10-37); CALCIUM 8.3 mg/dL (8.4-11.0); CHLORIDE 105 mmol/L (98-107); CHOLESTEROL 170 mg/dL (<200); CREATININE 1.05 mg/dL (0.55-1.30); GLUCOSE 110 mg/dL (70-99); HDL CHOLESTEROL 65 mg/dL (>55); LDL CHOLESTEROL 101 mg/dL (<100); POTASSIUM 3.5 mmol/L (3.5-5.1); SODIUM SERUM 138 mmol/L (136-145); TOTAL BILIRUBIN 0.9 mg/dL (0.0-1.0); TRIGLYCERIDES 62 mg/dL (30-150); UREA NITROGEN, BLOOD 28 mg/dL (8-21)
[2017-07-07] MEDS: LEVOTHYROXINE SODIUM 0.1 MG TABLET PO SCH (06:59)
[2017-07-07 08:01] VITALS: BP_SYST 98
[2017-07-07] MEDS ORDERED: DIATR MEGLU/DIATRIZ SOD 30 ML SOLUTION PO ONE (08:10)
[2017-07-07] MEDS: SENNOSIDES/DOCUSATE SODIUM 1 TAB TABLET(SENOKOT-S) PO SCH (08:19)
[2017-07-07] MEDS: ASPIRIN 81 MG TABLET(ECOTRIN) PO SCH (08:19)
[2017-07-07] MEDS: METOPROLOL SUCCINATE 25 MG TAB.SR.24H (TOPROL XL) PO SCH (09:00)
[2017-07-07] MEDS: LOSARTAN POTASSIUM 25 MG TABLET PO SCH (09:00)
[2017-07-07] MEDS ORDERED: NON-FORMULARY MEDICATION (Trospium Chloride 20 MG) PO SCH (09:00)
[2017-07-07 12:00] VITALS: BP_SYST 109; BP_SYST 136
[2017-07-07] MEDS: LACTOBACILLUS RHAMNOSUS GG 1 CAP CAPSULE PO SCH ×2 (14:52→21:44)
[2017-07-07] MEDS: CIPROFLOXACIN HCL 500 MG TABLET PO SCH ×2 (14:52→21:44)
[2017-07-07] MEDS: cefTRIAXone 1 GM in D5W 50 ML IV SCH (14:53)
[2017-07-07 16:00] VITALS: BP_SYST 111
[2017-07-07 20:15] VITALS: BP_SYST 98
[2017-07-07] MEDS ORDERED: PRAVASTATIN SODIUM 20 MG TABLET (PRAVACHOL) PO SCH (21:00)
[2017-07-07] MEDS ORDERED: SIMVASTATIN 10 MG TABLET PO SCH (21:00)
[2017-07-08 00:41] VITALS: BP_SYST 99
[2017-07-08 05:06] VITALS: BP_SYST 101
[2017-07-08] MEDS: LEVOTHYROXINE SODIUM 0.1 MG TABLET PO SCH (06:06)
[2017-07-08 06:41] LABS: ANION GAP 8 (5-15); CALCIUM 9.1 mg/dL (8.4-11.0); CHLORIDE 106 mmol/L (98-107); CREATININE 1.06 mg/dL (0.55-1.30); GLUCOSE 110 mg/dL (70-99); POTASSIUM 4.3 mmol/L (3.5-5.1); SODIUM SERUM 141 mmol/L (136-145); UREA NITROGEN, BLOOD 22 mg/dL (8-21)
[2017-07-08 06:44] LABS: BASOPHILS % (AUTO) 0.4 % (0.0-2.0); EOSINOPHILS # (AUTO) 0.2 K/uL (0.0-0.4); EOSINOPHILS % (AUTO) 2.5 % (0.0-4.0); HEMATOCRIT 34.6 % (36-48); HEMOGLOBIN 11.7 g/dL (12.0-16.0); LYMPHOCYTES # (AUTO) 1.9 K/uL (1.0-5.5); LYMPHOCYTES % (AUTO) 30.8 % (20.5-51.5); MEAN CORPUSCULAR HEMOGLOBIN 32 pg (27-31); MEAN CORPUSCULAR HGB CONC 34 % (32-36); MEAN CORPUSCULAR VOLUME 94 fL (79.0-98.0); MONOCYTES # (AUTO) 0.6 K/uL (0.0-1.0); MONOCYTES % (AUTO) 10.1 % (1.7-9.3); NEUTROPHILS # (AUTO) 3.4 K/uL (1.8-7.7); NEUTROPHILS % (AUTO) 56.2 % (40.0-70.0); PLATELET COUNT (AUTO) 189 K/uL (130-430); RED BLOOD CELL COUNT(AUTO) 3.68 MIL/uL (4.2-6.2); RED CELL DISTRIBUTION WIDTH 13.2 % (9.0-15.0); WHITE BLOOD COUNT (AUTO) 6.1 K/uL (4.8-10.8)
[2017-07-08 07:03] LABS: ALANINE AMINOTRANSFERASE 36 U/L (12-78); ALBUMIN 2.9 g/dL (3.4-4.8); ASPARTATE AMINOTRANSFERASE 40 U/L (10-37); TOTAL BILIRUBIN 0.5 mg/dL (0.0-1.0)
[2017-07-08 08:00] VITALS: BP_SYST 142
[2017-07-08] MEDS: TROSPIUM CHLORIDE 20 MG PO SCH (09:00)
[2017-07-08] MEDS: ATORVASTATIN 20 MG TABLET PO SCH (09:00)
[2017-07-08] MEDS: ASPIRIN 81 MG TABLET(ECOTRIN) PO SCH (09:00)
[2017-07-08] MEDS: MULTIVITS,CA,MINERALS/IRON/FA 1 TABLET PO SCH ×2 (11:24→11:32)
[2017-07-08] MEDS: levETIRAcetam 500 MG TABLET PO SCH ×2 (11:24→21:18)
[2017-07-08] MEDS: LACTOBACILLUS RHAMNOSUS GG 1 CAP CAPSULE PO SCH ×2 (11:25→21:17)
[2017-07-08] MEDS: METOPROLOL SUCCINATE 25 MG TAB.SR.24H (TOPROL XL) PO SCH (11:28)
[2017-07-08] MEDS: PANTOPRAZOLE SODIUM 40 MG TAB PO SCH (11:28)
[2017-07-08] MEDS: LOSARTAN POTASSIUM 25 MG TABLET PO SCH (11:29)
[2017-07-08] MEDS: CIPROFLOXACIN HCL 500 MG TABLET PO SCH ×2 (11:29→21:19)
[2017-07-08] MEDS: SENNOSIDES/DOCUSATE SODIUM 1 TAB TABLET(SENOKOT-S) PO SCH (11:32)
[2017-07-08 13:05] VITALS: BP_SYST 133
[2017-07-08] MEDS ORDERED: QUEtiapine FUMARATE 25 MG TABLET ONE (14:07)
[2017-07-08] MEDS: QUEtiapine FUMARATE 25 MG TABLET PO SCH ×2 (14:12→21:18)
[2017-07-08] MEDS: cefTRIAXone 1 GM in D5W 50 ML IV SCH (14:12)
[2017-07-08 16:31] VITALS: BP_SYST 112
[2017-07-08 20:00] VITALS: BP_SYST 104
[2017-07-08] MEDS: ENOXAPARIN SODIUM 40 MG/0.4 ML SYRINGE SUBCUT SCH (21:18)
[2017-07-09 00:39] VITALS: BP_SYST 112
[2017-07-09 03:54] VITALS: BP_SYST 108
[2017-07-09] MEDS: LEVOTHYROXINE SODIUM 0.1 MG TABLET PO SCH (09:36)
[2017-07-09] MEDS ORDERED: REGADENOSON 0.4 MG/5 ML SYRINGE IVP ONE (10:30)
[2017-07-09 12:53] VITALS: BP_SYST 119
[2017-07-09 12:58] VITALS: BP_SYST 119
[2017-07-09] MEDS: cefTRIAXone 1 GM in D5W 50 ML IV SCH (15:08)
[2017-07-09 16:31] VITALS: BP_SYST 123
[2017-07-09] MEDS: LACTOBACILLUS RHAMNOSUS GG 1 CAP CAPSULE PO SCH ×2 (18:10→21:32)
[2017-07-09] MEDS: LOSARTAN POTASSIUM 25 MG TABLET PO SCH (18:10)
[2017-07-09] MEDS: levETIRAcetam 500 MG TABLET PO SCH ×2 (18:10→21:32)
[2017-07-09] MEDS: ASPIRIN 81 MG TABLET(ECOTRIN) PO SCH (18:10)
[2017-07-09] MEDS: ATORVASTATIN 20 MG TABLET PO SCH (18:11)
[2017-07-09] MEDS: PANTOPRAZOLE SODIUM 40 MG TAB PO SCH (18:11)
[2017-07-09] MEDS: TROSPIUM CHLORIDE 20 MG PO SCH (18:11)
[2017-07-09] MEDS: SENNOSIDES/DOCUSATE SODIUM 1 TAB TABLET(SENOKOT-S) PO SCH (18:11)
[2017-07-09] MEDS: MULTIVITS,CA,MINERALS/IRON/FA 1 TABLET PO SCH ×2 (18:12)
[2017-07-09] MEDS: QUEtiapine FUMARATE 25 MG TABLET PO SCH ×2 (18:12→21:33)
[2017-07-09] MEDS: METOPROLOL SUCCINATE 25 MG TAB.SR.24H (TOPROL XL) PO SCH (18:12)
[2017-07-09] MEDS: CIPROFLOXACIN HCL 500 MG TABLET PO SCH ×2 (18:13→21:33)
[2017-07-09 20:00] VITALS: BP_SYST 128
[2017-07-09] MEDS: ENOXAPARIN SODIUM 40 MG/0.4 ML SYRINGE SUBCUT SCH (21:32)
[2017-07-10] VITALS: BP_SYST 109
[2017-07-10 03:31] VITALS: BP_SYST 110
[2017-07-10] MEDS: LEVOTHYROXINE SODIUM 0.1 MG TABLET PO SCH (06:35)
[2017-07-10] MEDS: MULTIVITS,CA,MINERALS/IRON/FA 1 TABLET PO SCH ×2 (07:58→08:30)
[2017-07-10 08:24] VITALS: BP_SYST 125
[2017-07-10] MEDS: LACTOBACILLUS RHAMNOSUS GG 1 CAP CAPSULE PO SCH ×2 (08:27→20:36)
[2017-07-10] MEDS: LOSARTAN POTASSIUM 25 MG TABLET PO SCH (08:27)
[2017-07-10] MEDS: ASPIRIN 81 MG TABLET(ECOTRIN) PO SCH (08:27)
[2017-07-10] MEDS: ATORVASTATIN 20 MG TABLET PO SCH (08:28)
[2017-07-10] MEDS: levETIRAcetam 500 MG TABLET PO SCH ×2 (08:28→20:36)
[2017-07-10] MEDS: PANTOPRAZOLE SODIUM 40 MG TAB PO SCH (08:29)
[2017-07-10] MEDS: TROSPIUM CHLORIDE 20 MG PO SCH (08:29)
[2017-07-10] MEDS: QUEtiapine FUMARATE 25 MG TABLET PO SCH ×2 (08:30→20:36)
[2017-07-10] MEDS: SENNOSIDES/DOCUSATE SODIUM 1 TAB TABLET(SENOKOT-S) PO SCH (08:33)
[2017-07-10] MEDS: METOPROLOL SUCCINATE 25 MG TAB.SR.24H (TOPROL XL) PO SCH (08:35)
[2017-07-10] MEDS: CIPROFLOXACIN HCL 500 MG TABLET PO SCH (11:57)
[2017-07-10 13:00] VITALS: BP_SYST 106
[2017-07-10] MEDS: cefTRIAXone 1 GM in D5W 50 ML IV SCH (15:24)
[2017-07-10 16:26] VITALS: BP_SYST 99
[2017-07-10 20:00] VITALS: BP_SYST 123
[2017-07-10] MEDS: ENOXAPARIN SODIUM 40 MG/0.4 ML SYRINGE SUBCUT SCH (20:36)
[2017-07-10] MEDS: PIPERACILLIN/TAZO 3.375/DEX-IS 50 ML IV SCH (21:56)
[2017-07-11] VITALS: BP_SYST 119
[2017-07-11 04:00] VITALS: BP_SYST 120
[2017-07-11] MEDS: PIPERACILLIN/TAZO 3.375/DEX-IS 50 ML IV SCH (06:13)
[2017-07-11] MEDS: LEVOTHYROXINE SODIUM 0.1 MG TABLET PO SCH (06:14)
[2017-07-11 07:44] VITALS: BP_SYST 115
[2017-07-11 07:45] VITALS: BP_SYST 115
== END 2017-07-11 08:30 | disposition short-term general hospital (02) | DRG 280 ==
LOC: SED 17:20 → STU 20:23
PROVIDERS: ADMIT Internal Medicine; ATTEND Internal Medicine
DX: I21.9 Acute myocardial infarction, unspecified (principal); N17.0 Acute kidney failure with tubular necrosis; I95.9 Hypotension, unspecified; N39.0 Urinary tract infection, site not specified; E86.0 Dehydration; G62.9 Polyneuropathy, unspecified; B96.1 Klebsiella pneumoniae [K. pneumoniae] as the cause of diseases classified elsewhere; I25.10 Atherosclerotic heart disease of native coronary artery without angina pectoris; K40.90 Unilateral inguinal hernia, without obstruction or gangrene, not specified as recurrent; E03.9 Hypothyroidism, unspecified; E78.5 Hyperlipidemia, unspecified; I10 Essential (primary) hypertension; G93.9 Disorder of brain, unspecified; M47.9 Spondylosis, unspecified; F41.9 Anxiety disorder, unspecified; F32.9 Major depressive disorder, single episode, unspecified; E78.00 Pure hypercholesterolemia, unspecified; E66.9 Obesity, unspecified; R27.0 Ataxia, unspecified; Z96.653 Presence of artificial knee joint, bilateral; Z79.899 Other long term (current) drug therapy; Z85.42 Personal history of malignant neoplasm of other parts of uterus; Z92.21 Personal history of antineoplastic chemotherapy; Z88.6 Allergy status to analgesic agent; Z88.8 Allergy status to other drugs, medicaments and biological substances; Z68.27 Body mass index [BMI] 27.0-27.9, adult; Z90.710 Acquired absence of both cervix and uterus
CPT/HCPCS: 36415; 70450-TC; 70551; 71010; 72141; 76700-TC; 78226; 80053; 80061; 81000-TC; 83880; 84443-TC; 84484; 85025; 85610-TC; 85730-TC; 86304; 87081; 87086; 87186-TC; 93005; 93017; 93306; 96374; 97110-GP; 97116-GP; 97530-GP; 99285; A9500; A9537; J0696; J1644; J1650; J2543; J2785; J7040; J7060; Q9964